=== PATIENT | male | born 1985 | race Caucasian/White ===

== ENCOUNTER 2021-01-21 07:30 | Outpatient (RCR) | payer OTHER, SELFPAY ==
--- NOTE | 2021-01-14 09:42 | PTOPEVAL ---
PHYSICAL THERAPY EVALUATION Thank you for referring Eliot Polk to [facility].? The patient is scheduled to be seen for therapy? 1x/week for 3-4 weeks. Please review, sign, date and return this plan of care KAYLEEN. I agree with and certify that the following plan of care is medically necessary. Referring Physician Date Attending Provider: Gaston Arteaga PA-C Evaluation Diagnosis neck pain Onset 3months Subjective Information Noticed that 3 months ago Query Text:As Reported By Patient/ there was an irritation around Family his neck. He associated it to increased exercise/golf. Has a histroy of occular migraines that is normally managed with massage and has not had one in 3 years, but had an occular migraine and then pain that wrapped around the neck. There is now a persistent pain underneath his right chin that wraps around the neck. States he feels it every day unless he is lying down or has his chin down. He has tried various creams and heat. States that a brace seems to provide assistance. He has also started back to getting massages and he has been trying different stretches with maybe a little bit help. Pain Assessment Timing of Pain Assessment Timing of Pain Assessment Assessment Pain Scale Pain Scale Used Numeric (1 - 10) Self Report Pain Assessment Right Neck Reported Pain Level 2 Pain Description Pulling Pain Frequency Intermittent Lowest Pain Intensity 0 Greatest Pain Intensity 3 Pain Score Pain Score 2: Self Report Interventions Used Interventions Used By Clinicians Exercise,Joint Mobilization Cervical ROM WNL Cervical ROM Comments chin to chest without significant cervical flexion; cervical rotation symmetrical, but left rotation did have some increased lateral flexion left compared to right rotation. Upper Extremity Range of Motion General Upper Extremity Range of Motion Reason Not Measured WNL/Left,WNL/Right Ce
--- NOTE | 2021-02-18 08:07 | PCPTNOTE ---
Patient did not show up for scheduled appointment this date.
--- NOTE | 2021-02-27 08:58 | PCPTNOTE ---
PHYSICAL THERAPY DISCHARGE NOTE Attending Provider: Gaston Arteaga PA-C Patient:Eliot Polk Date of :1985 Patient has not returned for any further treatments since 01/21/2021, therefore he will be discharged at this time. Patient?s initial visit was on 01/14/2021. At his last attended appointment, he was reporting improved overall symptoms and that he is able to assist in decreasing symptoms with his home exercise program. Thank you for referring this patient to [facility]. Please review, sign, date and return this discharge summary KAYLEEN. I have been updated about the patient's current status and I agree with discharge from the above service at this time. Referring Physician Date
== END 2021-03-01 08:23 | disposition home or self-care (01) ==
LOC: ANHPT 07:30
PROVIDERS: PCP Physician Assistant; Visit Provider Physician Assistant
DX: M43.6 Torticollis (principal)
CPT/HCPCS: 97110; 97161

== ENCOUNTER 2021-03-12 15:25 | Emergency (ER) | payer OTHER, SELFPAY ==
[2021-03-12 15:27] VITALS: BP 138/76; PULSE 84; RESP 16; TEMP 37.4; O2SAT 100
--- NOTE | 2021-03-12 19:30 | PC.NURSE ---
verbal order from maribell cleveland, cbc, cmp, d-dimer.
--- NOTE | 2021-03-12 19:34 | ECG_ITS ---
Measurements Intervals [place] Rate: 66 P: 114 WI: 173 QRS: 225 QRSD: 107 T: 130 QT: 380 QTc: 398 Interpretive Statements SINUS RHYTHM ARM LEADS REVERSED BASELINE ARTIFACT- I, III, AVL BORDERLINE ECG Electronically Signed On 03-13-2021 8:16:01 CDT by Yoni Pitt D.O.
--- NOTE | 2021-03-12 19:34 | ED.GENADULT ---
HPI - General Adult General Chief complaint: Unspecified Stated complaint: post covid vaccine reaction Time Seen by Provider: 03/12/21 19:33 Source: patient Mode of arrival: ambulatory Limitations: no limitations History of Present Illness HPI narrative: Patient is a 35 year old male who presents with post vaccine complaints. Patient reports vaccinated with Pfizer approximately 2.5 weeks ago. Patient reports intermittent chest tightness and palpations. Patient also reports tenderness to bilateral lower extremities. He denies shortness of breath, denies significant medical history. MD complaint: Vaccine reaction Related Data Home Medications Medication Instructions Recorded Confirmed fluticasone propionate 50 2 spray INTRANASAL DAILY 11/01/20 11/01/20 mcg/actuation nasal spray,suspension Allergies Allergy/AdvReac Type Severity Reaction Status Date / Time No Known Allergies Allergy Verified 03/12/21 20:24 Review of Systems Review of Systems: Narrative: CONSTITUTIONAL: Denies fever, chills, or sweats. EYES: Denies visual changes, redness, or discharge. ENT: Denies rhinorrhea, congestion, sore throat, or otalgia. CARDIOVASCULAR: Reports intermittent chest pain and palpitations RESPIRATORY: Denies cough or dyspnea. GASTROINTESTINAL: Denies abdominal pain, nausea, vomiting, or diarrhea. GENITOURINARY: Denies dysuria or hematuria. SKIN: Denies rash or itching. MUSCULOSKELETAL: Reports bilateral intermittent calf tenderness NEUROLOGIC: Denies headache, numbness, dizziness, or weakness. PSYCHIATRIC: Denies anxiety or depression. [facility] Family History Family History Other Heart disease Non-Hodgkin lymphoma Social History Social History Smoking status: Never smoker Second hand tobacco smoke exposure: No Alcohol intake: former Substance use: never Substance use type: does not use Gender identity (if verbalized by the patient): Male Comments At the time of signature, I have reviewed and agree with nursing past medical, surgical, social, and family history unless otherwise noted. Please see nursing chart for further information. There is no relevant family history pertinent to the presenting complaint. Exam Narrative: Exam Narrative: GENERAL: Well-appearing, well-nourished, and in no acute distress. HEAD: Normocephalic, atraumatic. EYES: EOMI. No redness or drainage. Conjunctiva are normal. ENT: Mucous membranes pink and moist. Nares clear. No rhinorrhea. TMs normal bilaterally. Throat normal. Uvula midline. NECK: AROM. Supple. No lymphadenopathy. CHEST: No respiratory distress. Clear to auscultation. HEART: Regular rate and rhythm. No murmur appreciated. Normal peripheral pulses. GI: Soft, nontender without rebound, or guarding. No distention. Bowel sounds normal in all quadrants. MUSCULOSKELETAL: No bony tenderness. EXTREMITIES: Normal range of motion. No edema. SKIN: Warm, dry, no rash. NEURO: No focal deficits. Alert and oriented x3. Gait steady. PSYCH: Normal affect. No signs of depression or anxiety. Course Vital Signs Vital signs: Vital Signs Temperature 37.4 C 03/12/21 15:27 Pulse Rate 84 03/12/21 15:27 Respiratory Rate 16 03/12/21 15:27 Blood Pressure 138/76 03/12/21 15:27 Pulse Oximetry 100 03/12/21 15:27 Temperature 37.4 C 03/12/21 19:44 Pulse Rate 65 03/12/21 20:50 Respiratory Rate 14 03/12/21 20:50 Blood Pressure 113/73 03/12/21 20:50 Pulse Oximetry 100 03/12/21 20:50 Reviewed. Patient has been instructed to follow-up with his PCP regarding his blood pressure. Medical Decision Making Differential Diagnosis Differential Diagnosis: Patient is afebrile and nontoxic in appearance. Discussed with patient that his labs are unremarkable, EKG with normal sinus rhythm. Discussed with patient to follow-up with PCP if symptom
[2021-03-12 19:44] VITALS: BP 138/76; PULSE 84; RESP 16; TEMP 37.4; O2SAT 100
[2021-03-12 20:01] LABS: Basophils Percent Auto 0.3 % (0.2-1.2); Eosinophils Absolute Auto 0.1 K/mm3 (0-0.3); Eosinophils Percent Auto 1.3 % (0-4.4); Hematocrit 43.8 % (42.0-52.0); Immature Granulocyte Absolute 0.01 K/mm3 (0.00-0.031); Immature Granulocyte Percent A 0.1 % (0-0.5); Lymphocytes Absolute Auto 4.05 K/mm3 (0.9-3.2); Lymphocytes Percent Auto 51.8 % (18.3-44.2); Mean Corpuscular HGB Conc 34.2 g/dl (32-36); Mean Corpuscular Hemoglobin 30.1 pg (26-34); Mean Platelet Volume 9.4 fl (7.4-10.4); Monocytes Absolute Auto 0.4 K/mm3 (0.1-0.6); Monocytes Percent Auto 5.6 % (2.6-8.5); Neutrophils Absolute Auto 3.2 K/mm3 (1.3-6.7); Neutrophils Percent Auto 40.9 % (45.5-73.1); Platelet Count Result 297 k/mm3 (150-375); Red Blood Count 4.98 M/mm3 (4.6-6.20); White Blood Count 7.8 K/mm3 (4.5-10.0)
--- NOTE | 2021-03-12 20:11 | PC.NURSE ---
added on blood work to lab
[2021-03-12 20:15] LABS: D Dimer 0.27 ug/mL (<0.48)
[2021-03-12 20:22] LABS: Troponin I < 0.012 ng/mL (0.000-0.034)
[2021-03-12 20:30] LABS: Alanine Aminotransferase 19 U/L (4-50); Alkaline Phosphatase 57 U/L (38-126); Anion Gap 13 mmol/L (8-16); Aspartate Amino Transferase 32 U/L (17-59); Bilirubin,Total 0.4 mg/dL (0.2-1.3); Blood Urea Nitrogen 17 mg/dL (9-20); Calcium 9.8 mg/dL (8.4-10.2); Carbon Dioxide 25 mmol/L (22-30); Chloride 100 mmol/L (98-107); Estimated CRCL calculation 88 ml/min; Estimated Glomerular Filt Rate > 60; Glucose 106 mg/dL (75-110); Potassium 3.7 mmol/L (3.4-5.0); Sodium 138 mmol/L (137-145)
[2021-03-12 20:50] VITALS: BP 113/73; PULSE 65; RESP 14; O2SAT 100
== END 2021-03-12 20:50 | disposition home or self-care (01) ==
PROVIDERS: Emergency Provider Nurse Practitioner; PCP Physician Assistant
DX: R07.89 Other chest pain (principal); M79.605 Pain in left leg; M79.604 Pain in right leg; R03.0 Elevated blood-pressure reading, without diagnosis of hypertension; R94.31 Abnormal electrocardiogram [ECG] [EKG]; T50.B95A Adverse effect of other viral vaccines, initial encounter
CPT/HCPCS: 36415; 80053; 84484; 85025; 85380; 93005; 99284

== ENCOUNTER 2021-05-28 15:42 | Outpatient (CLI) | payer OTHER, SELFPAY ==
--- NOTE | ~2021-05-28 | US_ITS ---
EXAMINATION:US venous doppler LE BI INDICATION:Lower extremity pain TECHNIQUE: Multiple grayscale, color flow and Doppler images of the right and left lower extremity de ep venous systems were obtained and reviewed. COMPARISON:No prior studies for comparison. FINDINGS: The common femoral, superficial femoral and popliteal veins demonstrate normal respiratory variation, augmentation and compressibility. Color flow is also seen within the posterior tibial, pe roneal, greater saphenous and profunda veins. IMPRESSION: 1: No lower extremity deep venous thrombosis. Reviewed, dictated and finalized at location A.
== END 2021-05-28 15:43 | disposition home or self-care (01) ==
LOC: ANHIMG 15:47
PROVIDERS: PCP Internal Medicine; Visit Provider Internal Medicine
DX: M79.604 Pain in right leg (principal); M79.605 Pain in left leg
CPT/HCPCS: 93970

== ENCOUNTER 2022-10-21 10:37 | Emergency (ER) | payer OTHER, SELFPAY ==
[2022-10-21] VITALS (10 sets, daily range): BP systolic 129–155; BP diastolic 73–84; PULSE 70–95; RESP 13–20; TEMP 36.7; O2SAT 97–100
--- NOTE | 2022-10-21 10:41 | ECG_ITS ---
Measurements Intervals [place] Rate: 76 P: 72 ME: 157 QRS: -41 QRSD: 112 T: 74 QT: 359 QTc: 405 Interpretive Statements SINUS RHYTHM WITH SINUS ARRHYTHMIA LEFT AXIS DEVIATION COMPARED TO ECG 03/12/2021 19:45:17 SINUS ARRHYTHMIA NOW PRESENT LEFT-AXIS DEVIATION NOW PRESENT Electronically Signed On 10-21-2022 16:32:31 [employer] by Jessica Figueroa M.D.
--- NOTE | 2022-10-21 10:41 | ED.ARRPALP ---
HPI - Arrhythmia/Palpitations General Chief Complaint: Unspecified Stated Complaint: PALPITATIONS Time Seen by Provider: 10/21/22 10:40 History of Present Illness HPI narrative: Pt presents with intermittent palpitations since yesterday becoming more frequent. Pt denies CP. Pt has had these intermittently in past but worse today having at least 20 episodes this morning. Pt has appointment to see PCP tomorrow but thought he should get checked out. Related Data Home Medications Medication Instructions Recorded Confirmed fluticasone propionate 50 2 spray intranasal DAILY 11/01/20 10/21/22 mcg/actuation nasal spray,suspension (Allergy Relief (fluticasone)) Allergies Allergy/AdvReac Type Severity Reaction Status Date / Time No Known Allergies Allergy Verified 10/21/22 10:43 Review of Systems Review of Systems: All systems reviewed & are unremarkable except as noted in HPI and below PMFSH Past Medical History Medical History (Updated 10/21/22 @ 11:32 by Nick Colvin III, DO) Anxiety Family History Family History Other Heart disease Non-Hodgkin lymphoma Social History Social History Smoking status: Never smoker Second hand tobacco smoke exposure: No Alcohol intake: former Substance use: never Substance use type: does not use Gender identity (if verbalized by the patient): Male Exam Const: General: healthy appearing Nutritional Appearance: well nourished Orientation/consciousness: patient oriented x3 Limitations: no limitations Neck: Neck: normal visual inspection Chest: Chest palpation & inspection: normal inspection of the chest Resp: Effort & Inspection: normal respiratory effort Auscultation: clear to auscultation bilaterally Cardio: Rate: regular rate Rhythm: regular rhythm GI: GI Palp: Yes Soft to palpation Auscultation: normal bowel sounds Skin: General skin exam: normal color Neuro: General: patient oriented x3, moves all extremities, no meningeal signs, no focal motor deficits and CN's II-XI intact bilaterally Speech: normal speech Extrem: General: normal to inspection and no clubbing, cyanosis or edema Psych: Mental Status: mental status grossly normal Affect: normal affect Attitude: cooperative Course Vital Signs Vital signs: Vital Signs Pulse Rate 73 10/21/22 10:44 Respiratory Rate 15 10/21/22 10:44 Pulse Oximetry 98 10/21/22 10:44 Temperature 98.1 F 10/21/22 11:39 Pulse Rate 73 10/21/22 11:39 Respiratory Rate 13 10/21/22 11:39 Blood Pressure 129/76 10/21/22 11:39 Pulse Oximetry 98 10/21/22 11:39 Oxygen Delivery Room Air 10/21/22 11:39 MDM - Arrhythmia/Palpitations MDM Narrative Medical decision making narrative: pvc noted on monitor and this is what pt is feeling. will get ekg and check labs to make sure electrolytes are fine. labs and ekg fine. pt has follow up tomorrow and is good for discharge Lab Data 10/21/22 10:40 10/21/22 10:40 Labs: Lab Results 10/21/22 10/21/22 10/21/22 Range/Units 10:40 10:40 10:41 WBC 11.5 H (4.8-10.8) K/mm3 RBC 4.85 (4.70-6.10) M/mm3 Hgb 14.6 (14.0-18.0) g/dL Hct 42.7 (40.0-54.0) % MCV 88.0 (78.0-102.0) fL MCH 30.1 (27.0-31.0) pg MCHC 34.2 (32.0-36.0) g/dL RDW 12.0 (11.6-14.4) % Plt Count 308 (150-420) K/mm3 MPV 9.1 (8.7-11.0) fl Immature Gran % (Auto) 0.3 H (0.0-0.0) % Neut % (Auto) 77.2 H (50.0-70.0) % Lymph % (Auto) 17.0 L (18.0-42.0) % Lipscomb % (Auto) 5.0 (2.0-11.0) % Eos % (Auto) 0.2 L (1.0-6.0) % Baso % (Auto) 0.3 (0.0-1.0) % Lymph # (Auto) 1.95 (1.10-4.50) K/mm3 Lipscomb # (Auto) 0.57 (0.10-0.90) K/mm3 Eos # (Auto) 0.02 (0.02-0.50) K/mm3 Baso # (Auto) 0.03 (0.00-0.10) K/mm3 Abs Immat Gran (auto) 0.04 H (0
[2022-10-21 10:59] LABS: Basophils Absolute Auto 0.03 K/mm3 (0.00-0.10); Basophils Percent Auto 0.3 % (0.0-1.0); Eosinophils Absolute Auto 0.02 K/mm3 (0.02-0.50); Eosinophils Percent Auto 0.2 % (1.0-6.0); Hematocrit 42.7 % (40.0-54.0); Hemoglobin 14.6 g/dL (14.0-18.0); Immature Granulocyte Absolute 0.04 K/mm3 (0.00-0.00); Immature Granulocyte Percent A 0.3 % (0.0-0.0); Lymphocytes Absolute Auto 1.95 K/mm3 (1.10-4.50); Mean Corpuscular HGB Conc 34.2 g/dL (32.0-36.0); Mean Corpuscular Hemoglobin 30.1 pg (27.0-31.0); Mean Platelet Volume 9.1 fl (8.7-11.0); Monocytes Absolute Auto 0.57 K/mm3 (0.10-0.90); Neutrophils Absolute Auto 8.9 K/mm3 (1.7-7.2); Neutrophils Percent Auto 77.2 % (50.0-70.0); Platelet Count Result 308 K/mm3 (150-420); Red Blood Count 4.85 M/mm3 (4.70-6.10); White Blood Count 11.5 K/mm3 (4.8-10.8)
[2022-10-21 11:09] LABS: Magnesium 1.9 mg/dL (1.8-2.4)
[2022-10-21 11:15] LABS: Alanine Aminotransferase 23 U/L (16-63); Albumin Level 4.3 g/dL (3.4-5.0); Alkaline Phosphatase 53 U/L (46-116); Anion Gap 6 mmol/L (8-16); Aspartate Amino Transferase 19 U/L (15-37); Bilirubin,Total 0.5 mg/dL (0.00-1.00); Blood Urea Nitrogen 14 mg/dL (7-18); Calcium 8.6 mg/dL (8.5-10.1); Carbon Dioxide 29 mmol/L (21-32); Chloride 96 mmol/L (98-108); Estimated Glomerular Filt Rate > 60; Glucose 94 mg/dL (70-99); Osmolality Calculated 272 mOsm/kg (285-295); Potassium 3.6 mmol/L (3.5-5.1); Sodium 131 mmol/L (136-145); Total Protein 8.1 g/dL (6.4-8.2)
[2022-10-21 11:22] LABS: Troponin I < 4.0 ng/L (0.00-60.4)
== END 2022-10-21 11:40 | disposition home or self-care (01) ==
PROVIDERS: Emergency Provider Emergency Medicine; PCP Internal Medicine
DX: I49.3 Ventricular premature depolarization (principal)
CPT/HCPCS: 36415; 80053; 83735; 84484; 85025; 93005; 99284

== ENCOUNTER 2022-10-24 15:31 | Outpatient (CLI) | payer OTHER, SELFPAY ==
--- NOTE | 2022-11-11 14:23 | WPDHOLTEREM ---
Holter/Event Monitor Holter/Event Monitor Date of procedure: 10/24/22 Holter/Event Procedure: Event Monitor Indications: Palpitations Conclusion: 1. 5 days event monitor between 10/24/22-11/11/22. There are 29 available transmissions for analysis. 2. Underlying rhythm is sinus rhythm. HR range 50-159 bpm; average 69 bpm. HR at 159 bpm was on 10/29/22 at 16:16. 3. No premature supraventricular complexes. No supraventricular tachycardia. 4. There are occasional premature ventricular complexes with total burden of <1%. No ventricular tachycardia. 5. No significant pauses greater than 2 seconds. 6. There are 27 episodes of symptoms of skipped beat which demonstrate sinus rhythm, HR range 58-96 bpm with 9 episodes with PVC's.
== END 2022-10-24 15:32 | disposition home or self-care (01) ==
LOC: CHSCARD 15:34
PROVIDERS: PCP Internal Medicine; Visit Provider Internal Medicine
DX: R00.2 Palpitations (principal)
CPT/HCPCS: 93270

== ENCOUNTER 2022-10-31 14:20 | Outpatient (CLI) | payer OTHER, SELFPAY ==
--- NOTE | 2022-10-31 01:00 | ECHO_ITS ---
Patient Info Name: Eloit Polk Age: 37 years : 1985 Gender: Male Ht: 69 in Wt: 175 lbs BSA: 1.98 m2 HR: 74 bpm BP: 116 / 75 mmHg Heart Rhythm: Sinus Rhythm Technical Quality: Fair Exam Date: 10/31/2022 3:11 PM Exam Location: [facility] Patient Status: Outpatient Admit Date: 10/31/2022 Staff Ordering Physician: Javy Cleary MD Scraper Operator: Janeth Elizabeth RDCS Attending Provider: Javy Cleary MD Exam Type: CA echo doppler color flow Study Info Indications R00.2 - Palpitations Complete two-dimensional, color flow and Doppler transthoracic echocardiogram is performed. Summary 1. Complete two-dimensional, color flow and Doppler transthoracic echocardiogram is performed. 2. Left ventricular chamber dimension is normal. 3. Left ventricular systolic function is normal, estimated at 60-65%. 4. The left ventricular diastolic function is normal. 5. E/e' 5 is not elevated. 6. There is mild mitral valve regurgitation. 7. There is trace tricuspid valve regurgitation. 8. No pulmonary hypertension, estimated pulmonary arterial systolic pressure is 23 mmHg. 9. There is trace pulmonic regurgitation. Left Ventricle E/e' 5 is not elevated. Left ventricular chamber dimension is normal. Left ventricular systolic function is normal, estimated at 60-65%. The left ventricular diastolic function is normal. Right Ventricle Right ventricular systolic function is normal and with normal TAPSE 2.4 cm. Right ventricular chamber dimension is normal. Left Atria Left atrial chamber dimension is normal. Right Atria Right atrial chamber dimension is normal. Aortic Valve The aortic valve is trileaflet. There is no aortic valve stenosis. There is no aortic valve regurgitation. Pulmonic Valve There is trace pulmonic regurgitation. Mitral Valve There is no mitral valve stenosis. There is mild mitral valve regurgitation. Tricuspid Valve There is trace tricuspid valve regurgitation. No pulmonary hypertension, estimated pulmonary arterial systolic pressure is 23 mmHg. Pericardium/Pleural There is no pericardial effusion. Inferior Vena Cava Normal inferior vena cava with >50% collapse upon inspiration consistent with normal right atrial pressure, 5 mmHg. Aorta The aortic root size at the sinus of Valsalva is normal. Left Ventricular Outflow Tract Name Value Normal LVOT 2D LVOT Diameter 2.0 cm LVOT Doppler LVOT Peak Velocity 116 cm/s LVOT Peak Gradient 5 mmHg LVOT Mean Gradient 2 mmHg LVOT VTI 20 cm LVOT VTI/AV VTI Ratio 0.9 LVOT Stroke Volume 65 ml Pulmonic Valve Name Value Normal PV Doppler PV Peak Velocity 113 cm/s PV Peak Grad
== END 2022-10-31 14:21 | disposition home or self-care (01) ==
LOC: CHSIMG 14:21
PROVIDERS: PCP Internal Medicine; Visit Provider Internal Medicine
DX: R00.2 Palpitations (principal); I08.1 Rheumatic disorders of both mitral and tricuspid valves
CPT/HCPCS: 93306